=== PATIENT | female | born 1990 | race Caucasian/White ===

== ENCOUNTER 2021-06-13 04:52 | Emergency (ER) | payer OTHER ==
[~2021-06-13] VITALS: Ht 154.9 cm; Wt 61.2 kg
[~2021-06-13 04:52] MED LIST: ACYC400 PO; BCP'S; CODACE30 PO; IBUP800 PO; NITR100CA; PHENA200 PO; POTCHL10ER; PROM25 PO; RANI150; RXPHEN200 PO; SUCR1SU; SULTRIDS PO; Verotin-Gr Cap1 EACH PO
[2021-06-13] MEDS ORDERED: FLUT.05NI (07:20)
[2021-06-13] MEDS ORDERED: Amoxicillin500 MG PO (07:20)
[2021-06-13] MEDS ORDERED: GUAI600T33 PO (07:20)
== END 2021-06-13 07:33 | disposition home or self-care (01) ==
LOC: ER 04:52
DX: J02.0 Streptococcal pharyngitis (principal); J32.9 Chronic sinusitis, unspecified; Z88.2 Allergy status to sulfonamides; Z79.899 Other long term (current) drug therapy
CPT/HCPCS: 87430; 96374; 99284-25; A9270; J1100

== ENCOUNTER 2025-01-01 10:00 | Day surgery (SDC) | payer OTHER ==
[2025-01-01] VITALS (10 sets, daily range): BP systolic 107–119; BP diastolic 64–87
[~2025-01-01] VITALS: Ht 157.5 cm; Wt 55.6 kg
[~2025-01-01 10:00] MED LIST changes: +Amoxicillin500 MG PO; +Bupivacaine 0.5% W/EPI 1:200000 SDV 30 ML Vial ONE; +FLUT.05NI; +GUAI600T33 PO
--- NOTE | 2025-01-01 10:28 | NUR ---
History, Chart, Medications and Allergies reviewed before start of procedure. Pre-Op teaching done. Pt verbalizes understanding. Patient confirms NPO status and agrees with scheduled surgery.
[2025-01-01] MEDS ORDERED: FentaNYL Citrate 50 MCG/ML 2 ML Injection ONE (10:41)
[2025-01-01] MEDS ORDERED: Midazolam HCl 1MG / ML 2ML Vial ONE (10:41)
[2025-01-01] MEDS ORDERED: Rocuronium Bromide 10 MG/ML 5ML Injection IV ONE ×2 (10:41→10:47)
[2025-01-01] MEDS ORDERED: Dexamethasone Sod Phos 10 MG/ML 1ML VIAL ONE (10:47)
[2025-01-01] MEDS ORDERED: Ondansetron HCl 2 MG / ML 2ML Vial ONE (10:47)
[2025-01-01] MEDS ORDERED: Ketorolac Tromethamine 30mg Vial ONE (10:48)
[2025-01-01] MEDS ORDERED: Sugammadex Sodium 200 MG/2ML SDV (100 MG/ML) ONE (10:48)
[2025-01-01] MEDS ORDERED: Ondansetron HCl 2 MG / ML 2ML Vial IV PRN (11:30)
[2025-01-01] MEDS ORDERED: Metoclopramide HCl 5MG / ML 2ML Vial IV PRN (11:35)
[2025-01-01] MEDS ORDERED: Albuterol 2.5 MG/3 ML VIAL INH PRN (11:35)
[2025-01-01] MEDS ORDERED: FentaNYL Citrate 50 MCG/ML 2 ML Injection IV PRN ×2 (11:35)
[2025-01-01] MEDS ORDERED: HYDROmorphone HCl/Pf 1MG SYR IV PRN ×2 (11:35)
[2025-01-01] MEDS ORDERED: HYDROcodone 5-APAP 325 TAB PO PRN (12:00)
--- NOTE | 2025-01-01 13:17 | NUR ---
TO STEP POST PROCEDURE. DENIES NAUSEA, SOB. REPORTS MILD "CRAMPING", SHAKY. WARMING MEASURES PROVIDED. UP TO BR WITH STANDBY ASSIST, REPORTS MILD BURNING WITH URINATION, SCANT AMOUNT RED DRAINAGE ON DANAE PAD. ABD INCISIONS CDI WITH STERI STRIPS. PT/FAMILY VERBALIZED UNDERSTANDING OF DC INSTRUCTIONS, FOLLOW UP, MEDICATIONS, WOUND CARE. YULIANA PO WELL, DENIES NAUSEA. DRESSED AT BEDSIDE WITH ASSIST. DC'D IV INTACT. DC'D VIA WC TO PRIVATE CAR WITH SQUEEGEE OPERATOR.
== END 2025-01-01 13:15 | disposition home or self-care (01) ==
LOC: ORSCMMR 10:00 → ORD 11:30 → ORSCMMR 13:15
DX: Z30.2 Encounter for sterilization (principal); N92.0 Excessive and frequent menstruation with regular cycle; N94.3 Premenstrual tension syndrome
CPT/HCPCS: 88302; A9270; J1100; J1885; J2250; J2405; J2704; J3010; J7120